=== PATIENT | male | born 1980 | race African-American/Black ===

== ENCOUNTER 2017-01-30 23:00 | Emergency (ER) | payer SELFPAY ==
[~2017-01-30] VITALS: Ht 167.6 cm; Wt 70.8 kg
[2017-01-30 23:12] VITALS: BP 125/71
[2017-01-31] MEDS ORDERED: IBUPROFEN 600 MG TABLET. PO ONE (01:00)
[2017-01-31] MEDS ORDERED: CYCLOBENZAPRINE 10 MG TABLET. PO ONE (01:00)
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
[2017-01-31] MEDS ORDERED: IBUP-1007 PO (02:29)
[2017-01-31] MEDS ORDERED: CYCL10TA2 PO (02:29)
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
== END 2017-01-31 02:40 | disposition home or self-care (01) ==
LOC: ER 23:00
DX: S00.93XA Contusion of unspecified part of head, initial encounter (principal); M25.552 Pain in left hip; R10.11 Right upper quadrant pain; R10.12 Left upper quadrant pain; J45.909 Unspecified asthma, uncomplicated; F17.200 Nicotine dependence, unspecified, uncomplicated; V59.88XA Occupant (driver) (passenger) of pick-up truck or van injured in other specified transport accidents, initial encounter; Y93.89 Activity, other specified; Y99.8 Other external cause status; Y92.488 Other paved roadways as the place of occurrence of the external cause
CPT/HCPCS: 70450; 72125; 99284-25

== ENCOUNTER → 2017-09-05 | Outpatient (CLI) | payer OTHER | END | disposition home or self-care (01) | LOC: LAB 23:09 | DX: Z02.83 Encounter for blood-alcohol and blood-drug test (principal) | CPT/HCPCS: 36415 ==